=== PATIENT | female | born 1955 | race African-American/Black ===

== ENCOUNTER 2017-08-15 15:03 | Emergency (ER) | payer MEDICARE, MEDICAID ==
[~2017-08-15] VITALS: Ht 167.6 cm; Wt 100.0 kg
[~2017-08-15 15:03] MED LIST: HYDR25TA PO; METFORMIN
[2017-08-15] MEDS ORDERED: SODIUM CHLORIDE 0.9% 1,000 ML IV ONE (16:08)
[2017-08-15] MEDS ORDERED: KETOROLAC 30MG/ML VIAL IV STA (16:08)
[2017-08-15 16:51] LABS: CHLORIDE 105 mEq/L (98-107)
[2017-08-15 16:52] LABS: BASOPHILS % 0.2 % (0.0-2.0); EOSINOPHILS % 1.5 % (0.0-5.0); HEMATOCRIT. 29.3 % (36.0-48.0); HEMOGLOBIN. 9.5 g/dL (12.0-16.0); LYMPHOCYTES % 25.7 % (20.0-50.0); MEAN CORPUSCULAR HEMOGLOBIN 25.8 pg (28.0-32.0); MEAN CORPUSCULAR VOLUME 79.8 fL (81.0-99.0); MEAN PLATELET VOLUME 9.6 fl (7.4-10.4); MONOCYTES % 10.3 % (2.0-8.0); NEUTROPHILS % 62.3 % (40.0-76.0); PLATELET 169 x1000/uL (130-400); RED BLOOD CELL COUNT 3.68 mill/uL (4.2-5.4); RED CELL DISTRIBUTION WIDTH 17.3 % (11.6-14.6)
[2017-08-15 16:56] LABS: INR 1.1
[2017-08-15 17:02] LABS: CLARITY URINE CLEAR (CLEAR); COLOR URINE YELLOW (YELLOW); KETONES URINE NEGATIVE (NEGATIVE); LEUKOCYTE ESTERASE URINE TRACE (NEGATIVE); NITRITE URINE NEGATIVE (NEGATIVE); OCCULT BLOOD URINE NEGATIVE (NEGATIVE); PROTEIN URINE 1+ (NEGATIVE); SPECIFIC GRAVITY URINE 1.023 (1.005-1.030); UROBILINOGEN URINE 0.2 E.U./dL (0.2-1.0)
[2017-08-15 17:02] LABS: CARBON DIOXIDE 28 mEq/L (21-32)
[2017-08-15 18:27] VITALS: BP 146/80
== END 2017-08-15 18:31 | disposition home or self-care (01) ==
LOC: ER 15:27
DX: G95.89 Other specified diseases of spinal cord (principal); M89.9 Disorder of bone, unspecified; I10 Essential (primary) hypertension; M79.7 Fibromyalgia; Z79.84 Long term (current) use of oral hypoglycemic drugs
CPT/HCPCS: 36415; 71045; 74176; 80053; 81001; 83690; 85025; 85610; 96361; 96374; 99285; J1885; J7030